=== PATIENT | male | born 1965 | race African-American/Black ===

== ENCOUNTER 2017-10-17 07:38 | Day surgery (SDC) | payer BC, MEDICAID, OTHER ==
[~2017-10-17 07:38] MED LIST: DIPHENHYDRAMINE HCL 50 MG/ML VIAL ONE; EPINEPHRINE INJ 1 MG/10 ML DISP.SYRIN ONE; FENTANYL CITRATE INJ/PF 100 MCG/2 ML AMPUL ONE; FLUMAZENIL INJ 0.5 MG/5 ML VIAL ONE; GLUCAGON,HUMAN RECOMB 1 MG INJ ONE; NALOXONE HCL INJ/PF 0.4 MG/1 ML SDV ONE; ONDANSETRON HCL INJ/PF 4 MG/2 ML SDV ONE
--- NOTE | 2017-10-17 08:07 | Operative Report ---
Operative Report DATE OF SURGERY: 10/17/17 PREOPERATIVE DIAGNOSIS: Screening for colon-rectal carcinoma POSTOPERATIVE DIAGNOSIS: 1. No evidence of malignancy. 2. Small polyp of the left colon OPERATION: 1. Total colonoscopy to cecum photodocumentation. 2. Left colon polypectomy with cold snare device SURGEON: GLENROY ZIMMERMAN ANESTHESIA: Moderate Sedation TISSUE REMOVED OR ALTERED: Polyp COMPLICATIONS: None ESTIMATED BLOOD LOSS: Scant INTRAOPERATIVE FINDINGS: See below PROCEDURE: Obtaining informed consent the patient was taken from the preoperative holding area to the main endoscopy suite where monitoring devices were attached to the patient. Plan and surgical timeout were conducted The patient was placed in the left lateral decubitus position with knees to chest. A perianal examination was performed. There was no visible or palpable anorectal pathology. Sphincter tone was felt to be normal. The flexible adult colonoscope was advanced through the anal rectal canal, all the way to the cecum. Visualization of the cecum was achieved and the ileocecal valve, the appendiceal orifice and transillumination of the anterior abdominal wall. This was an excellent study on the well-prepped bowel. The colonoscope was withdrawn slowly and methodically checked and the mucosa carefully. There was no evidence of tumor, stricture, bleeding; in the descending colon approximately 60 cm from anal verge a small sessile polyp approximately 2 mm in diameter which is photographed, then removed using a cold forceps device. It was sent to pathology. Bleeding was minimal There was no evidence of diverticuloses. The scope was slowly withdrawn through the anal rectal canal. Complete visualization of the rectum was achieved with photodocumentation. The scope was withdrawn to the patient's anus. The patient tolerated the procedure well and was taken to the recovery area in stable condition. Per surveillance guidelines, patient be an appropriate candidate for follow-up colonoscopy in 3 years.
[2017-10-17] MEDS: MIDAZOLAM 2 MG/2 ML INJ ONE ×3 (08:11→08:24)
--- NOTE | 2017-10-17 08:52 | Operative Report ---
Nonrecallable Operative Report DATE OF SURGERY: 10/17/17 PREOPERATIVE DIAGNOSIS: Screening for colon cancer POSTOPERATIVE DIAGNOSIS: Same with scattered diverticulosis; internal and external hemorrhoids, collapsed OPERATION: Total colonoscopy to cecum with photodocumentation SURGEON: GLENROY ZIMMERMAN ANESTHESIA: Moderate Sedation TISSUE REMOVED OR ALTERED: None COMPLICATIONS: None ESTIMATED BLOOD LOSS: None INTRAOPERATIVE FINDINGS: See below PROCEDURE: Obtaining informed consent the patient was taken from the preoperative holding area to the main endoscopy suite where monitoring devices were attached to the patient. Plan and surgical timeout were conducted The patient was placed in the left lateral decubitus position with knees to chest. A perianal examination was performed. There was no visible or palpable anorectal pathology. Sphincter tone was felt to be normal. There were internal and external hemorrhoids The flexible adult colonoscope was advanced through the anal rectal canal, all the way to the cecum. Visualization of the cecum was achieved and the ileocecal valve, the appendiceal orifice and transillumination of the anterior abdominal wall. This was an excellent study on the well-prepped bowel. The colonoscope was withdrawn slowly and methodically checked and the mucosa carefully. There was no evidence of tumor, stricture, bleeding or polyp. There were scattered diverticulosis . The scope was slowly withdrawn through the anal rectal canal. Complete visualization of the rectum was achieved with photodocumentation. The scope was withdrawn to the patient's anus. The patient tolerated the procedure well and was taken to the recovery area in stable condition. Per screening guidelines, patient will be an appropriate candidate for follow- up colonoscopy in 10 years
--- NOTE | 2017-10-17 08:53 | Discharge Summary ---
Discharge Summary (SDC) - Discharge Final Diagnosis: Scattered diverticulosis; internal and external hemorrhoids Date of Surgery: 10/17/17 Discharge Date: 10/17/17 Condition: Good Treatment or Instructions: [facility] [address] [address] POST ENDOSCOPY DISCHARGE INSTRUCTIONS 1. Diet: Start clear liquids that a regular diet as tolerated. 2. Resume all preoperative medications. All oral anticoagulants and aspirins can be resumed 24 hours after procedure. 3. If a polypectomy was performed some bleeding per rectum may occur. This should stop within 3 days. If not, please contact the office. 4. If you had a colonoscopy you may experience some bloating and delayed return of normal bowel function for several days, your regular bowel movement pattern should resume within a week. 5. Please contact [facility] at to make an appointment with Dr. Bowen for 1 to 3 weeks following procedure. 6. If you have any questions or concerns regarding your care,treatment plan or follow up, please contact our office. 7. Per clinical guidelines we recommend you undergo a repeat colonoscopy in 10 years. Discharge Diet: As Tolerated Discharge Activity: Activity As Tolerated Home Care Assistance: None Needed Report the Following to Your Physician Immediately: Shortness of Breath, Increase in Pain, Fever over 101 Degrees
[2017-10-17 09:40] VITALS: BP 129/81
== END 2017-10-17 09:40 | disposition home or self-care (01) ==
LOC: END 07:38
PROVIDERS: ATTEND Surgery
DX: Z12.11 Encounter for screening for malignant neoplasm of colon (principal); K57.30 Diverticulosis of large intestine without perforation or abscess without bleeding; K64.4 Residual hemorrhoidal skin tags; K64.8 Other hemorrhoids; I10 Essential (primary) hypertension; K43.9 Ventral hernia without obstruction or gangrene; E66.9 Obesity, unspecified; Z68.35 Body mass index [BMI] 35.0-35.9, adult; Z79.899 Other long term (current) drug therapy
CPT/HCPCS: 45378; J2250; J3010; J0171; J1200; J1610; J2310; J2405; J3490

== ENCOUNTER 2018-01-15 05:30 | Day surgery (SDC) | payer OTHER ==
[2018-01-08 09:48] LABS: HEMATOCRIT 39.7 % (37.9-51.0); MEAN CORPUSCULAR HEMOGLOBIN 27.9 pg (27.0-33.4); MEAN CORPUSCULAR HGB CONC 32.8 g/dL (32.0-36.0); MEAN CORPUSCULAR VOLUME 85 fl (80-97); PLATELET COUNT 305 10^3/uL (150-450); RED BLOOD COUNT 4.68 10^6/uL (4.35-5.55); RED CELL DISTRIBUTION WIDTH 12.9 % (11.5-14.0); WHITE BLOOD COUNT 7.1 10^3/uL (4.0-10.5)
--- NOTE | 2018-01-08 19:22 | EKG REPORT ---
SEVERITY:- NORMAL ECG - SINUS RHYTHM : Confirmed by: Evonne Dwyer MD 08-Jan-2018 19:21:57
[~2018-01-15 05:30] MED LIST changes: +CEFAZOLIN 1 GM/D5W RTU 1 GM/50 ML RTUPB IV PRN; -DIPHENHYDRAMINE HCL 50 MG/ML VIAL ONE; -EPINEPHRINE INJ 1 MG/10 ML DISP.SYRIN ONE; -FENTANYL CITRATE INJ/PF 100 MCG/2 ML AMPUL ONE; -FLUMAZENIL INJ 0.5 MG/5 ML VIAL ONE; -GLUCAGON,HUMAN RECOMB 1 MG INJ ONE; +LACTATED RINGERS 1000 ML IV PRN; +LIDOCAINE 0.5% INJ-PF (5 MG/ML) 50 ML SDV SUBCUT PRN; -NALOXONE HCL INJ/PF 0.4 MG/1 ML SDV ONE; -ONDANSETRON HCL INJ/PF 4 MG/2 ML SDV ONE
[2018-01-15] MEDS ORDERED: CEFAZOLIN 1 GM/D5W RTU 1 GM/50 ML RTUPB IV ONE (05:34)
[2018-01-15] MEDS ORDERED: BUPIVACAINE HCL 0.5 % INJ/PF 30 ML SDV ONE (06:38)
[2018-01-15] MEDS ORDERED: FENTANYL CITRATE INJ/PF 250 MCG/5 ML AMPULE ONE (07:10)
[2018-01-15] MEDS ORDERED: MIDAZOLAM 2 MG/2 ML INJ ONE (07:10)
[2018-01-15] MEDS ORDERED: PROPOFOL INJ 200 MG/20 ML VIAL IV ONE (07:11)
[2018-01-15] MEDS ORDERED: DIPHENHYDRAMINE HCL 50 MG/ML VIAL IV PRN (07:54)
[2018-01-15] MEDS ORDERED: FENTANYL CITRATE INJ/PF 100 MCG/2 ML AMPUL IV PRN ×3 (07:54)
[2018-01-15] MEDS ORDERED: MEPERIDINE HCL/PF INJ 25 MG/1 ML DISP.SYRIN IV PRN (07:54)
[2018-01-15] MEDS ORDERED: PROMETHAZINE HCL INJ 25 MG/1 ML VIAL IV PRN ×2 (07:54)
[2018-01-15] MEDS ORDERED: OXYCODONE-ACETAMINOPHEN 5-325 MG TABLET PO PRN ×3 (07:54→09:35)
--- NOTE | 2018-01-15 09:35 | Discharge Summary ---
Discharge Summary (SDC) - Discharge Final Diagnosis: umbilical hernia Date of Surgery: 01/15/18 Discharge Date: 01/15/18 Condition: Stable Treatment or Instructions: [facility] [address], [place] [address] Discharge Instructions: Laparoscopic Surgery 1. General Information: a. DO NOT DRIVE a car or operate dangerous machinery for 3-4 days or while taking narcotic pain pills. b. DO NOT consume alcohol, tranquilizers, sleeping medications or any non- prescribed medications for 24 hours unless approved by your doctor or as long as taking narcotic prescription medications. c. DO NOT make important decisions or sign any important papers for the first 24 hours after surgery. d. When discharged home the same day of surgery have a responsible person with you for the first night. 2. Activity Restrictions: 8 weeks. a. NO heavy lifting, straining abdominal muscles, bending over a lot, yard work, house work, or sports for [address] for 3-4 days or while taking _Percocet__ . c. It is fine to go for walks, up and down steps, ride in a car. d. Elevate your head when sleeping/resting. 3. Treatment: a. You may shower 24 hours after surgery, no baths or swimming for 2 weeks. Remove band-aids or dressings before shower but leave paper strips (steri-strips ) on the skin to fall off on their own. If still on at postoperative visit they will be removed then. b. Drainage of fluid or blood is not unusual from an incision. If occurs, you can clean with peroxide and cotton ball daily and cover with dry gauze until the wound seals. c. If a lot of bleeding occurs, you can hold pressure with a gauze or cloth over the site for 10 minutes and it will usually stop. If bleeding continues you will need to call for possible evaluation in office or emergency room. 4. Medications: a. _Percocet__ may be taken for pain as needed, one tablet every 6 hours. Stop the narcotic when able since you cannot take it and drive, and they cause constipation. After the Percocet is complete you may take Toradol 10mg one pill by mouth every six hours as needed for pain. b. You should resume all normal medications unless a change is specified by your doctors. 5. Diet: Normal diet 6. The following may occur after laparoscopic surgery: a. Shoulder or upper back ache from retained gas that should resolve in 1-2 days b. Soreness and bruising at incision sites will resolve with time. c. Scrotal swelling (labia in women) and bruising is often seen after hernia surgery. d. Sore throat e. Fatigue may last days to weeks. f. Difficulty urinating may occur and may need to come into emergency room for urinary catheter placement. 7. Notify Physician If: a. Worsening or pain not improved with pain medication b. Persistent nausea and vomiting c. Fever above 101 d. Persistent bleeding or swelling at operative site e. Unable to urinate and uncomfortable bladder 6-8 hours after surgery 8..Follow Up Care: a. Schedule a follow up appointment with your doctor for 2 weeks. In the event of any postoperative problems or questions or you may call the office during business hours or the On-Call physician evenings and weekends at [facility]. [facility] I understand the instructions for my postoperative care as described above and a copy has been given to me. Patient/Significant Other Witness Date Prescriptions: Ketorolac Tromethamine [Toradol 10 mg Tablet] 10 mg PO Q6HP PRN #15 tablet PRN Reason: Oxycodone HCl/Acetaminophen [Percocet 5-325 mg Tablet] 1 tab PO ASDIR PRN #15 tab PRN Reason: Referrals: LEIGH MYRICK MD [Primary Care Provider] - Discharge Diet: As Tolerated Discharge Activity: No Lifting Over 10 Pounds, No Lifting/Push/Pulling, Walk Frequently Report the Following to Your Physician Immediately: Nausea, Vomiting, Fever over 101 Degrees, Unusual Bleeding, Redness, Drainage-Foul Smelling
--- NOTE | 2018-01-15 09:45 | Operative Report ---
Operative Report DATE OF SURGERY: 01/15/18 PREOPERATIVE DIAGNOSIS: 1. Incarcerated umbilical hernia with overlying threatened skin. 2. Morbid obesity POSTOPERATIVE DIAGNOSIS: Same with intra-abdominal adhesions OPERATION: 1. Laparoscopic lysis of adhesions. 2. Primary closure of ventral wall hernia with mesh reinforcement using 15 cm Bard ventral light prosthesis SURGEON: GLENROY ZIMMERMAN 1ST DIRECTOR DATA: HECTOR DUPREE ANESTHESIA: GA TISSUE REMOVED OR ALTERED: See below COMPLICATIONS: None ESTIMATED BLOOD LOSS: Scant INTRAOPERATIVE FINDINGS: See below PROCEDURE: The patient was taken to the preop holding her to the main operating room where general anesthesia was induced. Arms were abducted, abdomen exposed, prepped and draped in a sterile fashion; instrumentation set up for laparoscopic ventral wall hernia repair. Surgical plan surgical timeout were conducted. Markings were made on the skin for 3 port laparoscopy. Skin was Eva times with quarter percent Marcaine. A small stab was made in the left upper quadrant , Veress needle inserted the peritoneal cavity pneumoperitoneum was established. Veress needle was removed, 5 mm ports inserted and a 5 mm viewing scope was inserted. 2 additional ports were placed one left lower quadrant one in the right midfield. Findings were significant for safe entry of the peritoneal cavity with no injury to viscera or vascular structures. There is significant amount of greater omentum incarcerated into the umbilical hernia defect. Photos were taken. We spent approximately 25 minutes taking down adhesions from the greater omentum into the incarcerated umbilical hernia. This was done using a combination of blunt, hook electrocautery dissection. All of the fat was debated from the hernia sac. The hernia sac was left in situ. We checked the omentum for any mechanical bleeding there was none The fascial defect was somewhat oblong shaped, vertically oriented with a maximum diameter of approximately 5 cm. Photos were taken. We elected to proceed with primary closure of the fascial defect using 4 interrupted figure-of -eight #1 PDS sutures. These were placed trans-corporeal using the disposable suture passer. Each knot was tied in sequence after decompressing the abdomen of pneumoperitoneum. Conclusion photos of the primary closure obtained. The orientation of the sutures was cranial to caudad. We now brought onto the field with 15 cm, non- large ventral light mesh, placed stitches of 0 PDS at the 12, 3, 6, 9:00 positions, moistened, rolled it, and brought up to the anterior abdominal wall. This was now unrolled and brought up to the anterior abdominal wall, and using the disposable suture passer, 2-0 PDS sutures brought through the anterior abdominal wall at the respective 4 positions. We now brought the mesh up against the anterior abdominal wall, appropriately oriented with the visceral side down and the actual side up. Photos were taken. We now secured the mesh to the anterior abdominal wall in the intervening areas with the absorb attack stapler, using approximately 25. Clinic photos were taken. There is no evidence of bleeding. There were no other problems. We checked our port sites for any mechanical issues and there were none. All ports removed under direct visualization, pneumoperitoneum evacuated, wounds with the 0 Vicryl benzoin Steri-Strips.
[2018-01-15] MEDS ORDERED: NALOXONE HCL INJ/PF 0.4 MG/1 ML SDV ONE (09:49)
[2018-01-15] MEDS ORDERED: FENTANYL CITRATE INJ/PF 100 MCG/2 ML AMPUL ONE (10:23)
[2018-01-15] MEDS ORDERED: KETOROLAC TROMETHAMINE INJ/PF 30 MG/1 ML SDV ONE (11:27)
[2018-01-15 13:14] VITALS: BP 142/90
[2018-01-15] MEDS ORDERED: ONDANSETRON HCL INJ/PF 4 MG/2 ML SDV ONE (16:00)
[2018-01-15] MEDS ORDERED: GLYCOPYRROLATE 1 MG/5 ML SYRINGE ONE (16:00)
[2018-01-15] MEDS ORDERED: NEOSTIGMINE METHYLSULFATE 10 MG/10 ML VIAL ONE (16:00)
[2018-01-15] MEDS ORDERED: DEXAMETHASONE SOD PHOSPHATE INJ 4 MG/1 ML VIAL ONE (16:00)
== END 2018-01-15 12:20 | disposition home or self-care (01) ==
LOC: OROUT 05:30
PROVIDERS: ATTEND Surgery
DX: K42.0 Umbilical hernia with obstruction, without gangrene (principal); K66.0 Peritoneal adhesions (postprocedural) (postinfection); K43.9 Ventral hernia without obstruction or gangrene; I10 Essential (primary) hypertension; E66.01 Morbid (severe) obesity due to excess calories; Z68.35 Body mass index [BMI] 35.0-35.9, adult; Z79.899 Other long term (current) drug therapy
CPT/HCPCS: 93005; 36415; 85027; 93010; 49653; 49329; C1781; J2250; J3490 ×2; J0690; J1100; J3010 ×2; J1885; J2310; J2405; J2704; 790